=== PATIENT | male | born 1960 | race Caucasian/White ===

== ENCOUNTER 2016-11-13 10:57 | Observation (INO) | payer OTHER ==
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
--- NOTE | ~2016-11-13 | DS ---
Discharge Summary [address] [place]. [address] NAME: MARIVEL MONCADA : 58 STATUS : DIS Matthew PAT#: [id number] AGE: 55 ADM/REG DATE : 11/13/16 MR#: [id number] REPORT SERV DATE: 11/15/16 DICTATED BY: DATE: REPORT STATUS : Draft TRANSCRIBED BY: MODL DATE: 11/14/16 ADMISSION DATE: 11/13/2016 DISCHARGE DATE: 11/14/2016 DISCHARGE DIAGNOSES: 1. Acute encephalopathy. 2. Hypertension. 3. Hyperlipidemia. 4. Amnesia. 5. Bipolar disorder. PROCEDURES AND IMAGIN. 11/13/2016, portable chest x-ray showed no acute process. 2. 11/13/2016, CT of the brain without contrast showed no acute infarct or hemorrhage with mild atrophy and chronic white matter gliosis. 3. MRI of the brain without contrast showed deep white matter changes, mild amount in both right and left centrum semiovale that do not appear acute. There is no evidence of any acute pathology. 4. 11/13/2016, MRA of the head without contrast showed mild changes in the M3 branches on the right and left and more particularly on the right. These are probably atherosclerotic in origin, vasculitis cannot be totally excluded. 5. 11/13/2016, MRI of the neck without contrast showed some minimal atherosclerotic changes in the posterior wall of the internal carotid at the bifurcation. No significant luminal stenosis in carotid, vertebral, or subclavian arteries identified. CONSULTATIONS: Dr. Harrison with Neurology and Dr. Varma with Psychiatry. HOSPITAL COURSE: Please refer to Dr. Gabby Bo H and P on 11/13/2016 for complete details regarding the patient's admission. 1. In brief, the patient was admitted by Dr. Bo for initial workup and management of his transient confusion and short-term amnesia. The patient has had a relatively uncomplicated hospital course. The patient has had extensive imaging which had shown no acute changes. The patient was seen by Neurology for his amnesia. The patient's urine drug screen was positive for benzodiazepine as well as cannabinoids and it was felt that this might be related to drug over use as well as combining it with marijuana. 2. Bipolar disorder. The patient was seen by Dr. Varma and it was recommended that he should avoid any antidepressant medications except under very specific circumstances that would be prescribed by Psychiatry. He has agreed to stop his Prozac. The patient also realizes the desirability of slow taper off his Ativan when his Abilify can be titrated to further increase for maximum bipolar control up to 5 to 10 mg daily if needed for mood or anxiety issues. 3. Hypertension. The patient has been stable on his Bystolic, Norvasc, and Prinivil with blood pressures in the 120s to 130 systolically and 70s to 80s diastolic. The patient's EEG has come back within normal limits. The patient has also been smoking one pack a day and smoking cessation was discussed. The patient states he has been to Discharge [address] [address] NAME: MARIVEL MONCADA : 58 STATUS : DIS Matthew PAT#: [id number] AGE: 55 ADM/REG DATE : 11/13/16 MR#: [id number] REPORT SERV DATE: 11/15/16 DICTATED BY: DATE: REPORT STATUS : Draft TRANSCRIBED BY: MODL DATE: 11/14/16 Vincenzo Garza previously as a teenager and feels like he had a positive experience there and is willing to talk to Dr. Hylton about a possible Psychiatric referral for his bipolar disorder. PHYSICAL EXAMINATION: VITAL SIGNS: Blood pressure is 139/89, temp is 98.0, heart rate is 83, respirations are 16, O2 saturation is 95% on room air. HEENT: Head is atraumatic, normocephalic. Pupils are equal, round, reactive to light and accommodation. Sclerae are clear. Nonicteric. Good dentition. NECK: Supple with no obvious thyromegaly or lymphadenopathy. Neck veins are flat. No obvious bruits. CARDIAC: The patient has S1 and S2 with no obvious murmurs, rubs, or gallops. LUNGS: Clear to auscultation with normal respiratory effort anteriorly and posteriorly. GI: Abdomen is soft, and nontender with active bowel sounds in all four quadrants. Normal bowel habitus. No palpable organomegaly. EXTREMITIES: No significant edema, clubbing, or cyanosis. Dorsalis pedis and posterior tibial pulses are palpable and equal bilaterally. MUSCULOSKELETAL: The patient moves all extremities x4. He is ambulatory without assistance. No difficulties with balance. SKIN: Skin is warm and dry. Intact, with normal color and turgor. NEUROPSYCH: The patient is alert and oriented x4, pleasant and cooperative. Cranial nerves II through XII are grossly intact. Affect is bright. DISCHARGE MEDICATIONS: Amlodipine 10 mg twice daily, Abilify 2 mg daily, aspirin 81 mg daily, Lipitor 10 mg daily, folic acid 1 mg daily, Prinivil 10 mg twice daily, Ativan 1 mg three times a day p.r.n. for anxiety, the patient is to attempt dose taper, Bystolic 10 mg daily, Flomax 0.4 mg daily, and Flonase one spray in each nostril twice daily as needed for allergies. ALLERGIES: THE PATIENT HAS AN ADVERSE REACTION TO TOPAMAX FOR WHICH HE HAS RHABDOMYOLYSIS AND HAS AN ALLERGY TO WASP VENOM. DISCHARGE INSTRUCTIONS: The patient is to follow up with his PCP, Dr. Hylton, in 7 to 10 days. Should the patient have any other acute issues, the patient is to follow up with PCP or present to the ER. Approximately 25 minutes has been spent coordinating discharge care of this patient including [id number] encounter and summarization of the discharge. RYLAN/URBANO Erin Nguyen NP / [id number] Discharge Summary [address] [address] NAME: MARIVEL MONCADA : 58 STATUS : DIS Matthew PAT#: [id number] AGE: 55 ADM/REG DATE : 11/13/16 MR#: [id number] REPORT SERV DATE: 11/15/16 DICTATED BY: DATE: REPORT STATUS : Draft TRANSCRIBED BY: MODL DATE: 11/14/16 CC: Boris Dove M.D.
--- NOTE | ~2016-11-13 | EEG ---
Electroencephalogram [facility] [address] [facility] [place]. [address] NAME: MARIVEL MONCADA : 58 STATUS : ADM Matthew PAT#: [id number] AGE: 55 ADM/REG DATE : 11/13/16 MR#: [id number] REPORT SERV DATE: 11/14/16 DICTATED BY: DATE: REPORT STATUS : Draft TRANSCRIBED BY: MODL DATE: 11/14/16 CLINICAL INDICATIONS: Encephalopathy. DESCRIPTION: This EEG was performed using 10/20 electrode placement system. During the EEG study, symmetric background activity was noted with muscle artifact contamination. Throughout the EEG study, predominant occipital rhythm is 11 hertz. Photic stimulation was performed with appropriate driving response. Hyperventilation was also performed. The patient achieved drowsy state. Otherwise, no focal abnormalities, seizure activity, or seizure discharge was seen. No clinical event was captured. INTERPRETATION: This EEG study obtained during awake and drowsy state may be considered within normal limits. No focal abnormalities, seizure activity, or seizure discharge was otherwise noted. Clinical correlation is recommended. [facility]/MOD Catalino Harrison MD / [id number] CC: Boris Dove M.D.
--- NOTE | ~2016-11-13 | CN ---
Consultation Report [facility] [address] [place]. [address] NAME: MARIVEL MONCADA : 58 STATUS : ADM Matthew PAT#: [id number] AGE: 55 ADM/REG DATE : 11/13/16 MR#: [id number] REPORT SERV DATE: 11/14/16 DICTATED BY: TATE LYONS DATE: 11/14/16 REPORT STATUS : Draft TRANSCRIBED BY: MODRaudel DATE: 11/14/16 PSYCHIATRIC CONSULTATION DATE OF CONSULTATION: 11/14/2016 I reviewed this patient's medical record. HISTORY OF PRESENT ILLNESS: He was admitted after he experienced an episode of confusion yesterday morning. I was consulted to address his history of mood swings. PAST PSYCHIATRIC HISTORY: He has suffered from mood cycling all of his adult life. He has periods of depression and periods of lorena. During manic periods, he gets very energetic, impulsive, optimistic, and insomniac. His home medication list included Abilify 2 mg q.h.s., Prozac 20 mg q.h.s., Ativan 1 mg t.i.d. p.r.n. He actually was taking the Ativan three times a day. His medications were prescribed by his PCP. He reported that the Abilify, which was started a few months ago, was the most helpful of all of these medications. FAMILY HISTORY: His father had anger issues. A paternal aunt had mood swings. SOCIAL HISTORY: He lives alone. He works in the insurance industry. He likes to play piano. He has supportive friends. MENTAL STATUS: He was very pleasant and cooperative in attitude. His mood was somewhat anxious. His affect was full and appropriate. His thinking was logical. He had no delusions. He had no hallucinations. He was oriented to time, place, and person. DIAGNOSIS: Bipolar disorder, not otherwise specified. RECOMMENDATIONS: I strongly suggested that he should avoid antidepressant medications, except under very specific circumstances. He readily agreed to stop the Prozac. We also discussed the desirability of a slow taper off Ativan at some future time. He was willing to consider this also. The Abilify can be increased to 5 or 10 mg daily if needed for mood or anxiety issues. He was agreeable to all of these recommendations. I will sign off. TOM/URBANO Tate Lyons M.D. / [id number] CC: Consultation Report [place] [address] [address] [place] [place] [address] NAME: MARIVEL MONCADA : 58 STATUS : ADM Matthew PAT#: [id number] AGE: 55 ADM/REG DATE : 11/13/16 MR#: [id number] REPORT SERV DATE: 11/14/16 DICTATED BY: TATE LYONS DATE: 11/14/16 REPORT STATUS : Draft TRANSCRIBED BY: URBANO DATE: 11/14/16 Bruce Vega Jr, MD G Michael Ozborn, M.D.
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
[2016-11-13 09:39] LABS: BASOPHILS 0.1 %; BASOPHILS ABSOLUTE 0.01 10/3/uL (0.0-0.16); EOSINOPHILS 1.1 %; HEMATOCRIT 38.4 % (40.0-51.0); HEMOGLOBIN 13.7 g/dL (13.6-17.8); IMMATURE GRANULOCYTES 0.5 %; IMMATURE GRANULOCYTES ABSOLUTE 0.04 10/3/uL (0.0-0.11); LYMPHOCYTES 26.2 %; MEAN CORPUS HGB CONC 35.7 g/dL (32.0-36.0); MEAN CORPUSCULAR HEMOGLOB 30.6 pg (26.0-34.0); MEAN CORPUSCULAR VOLUME 85.9 fL (80-100); MEAN PLATELET VOLUME 10.1 fL (9.2-13.0); MONOCYTES 6.6 %; MONOCYTES ABSOLUTE 0.58 10/3/uL (0.21-1.20); NEUTROPHILS 65.5 %; NEUTROPHILS ABSOLUTE 5.76 10/3/uL (2.02-8.40); PLATELET COUNT 190 10/3/uL (150-400); RBC DISTRIBUTION WIDTH 13.9 % (12.0-16.0); RED CELL COUNT 4.47 10/6/uL (4.7-6.1); WHITE BLOOD CELLS 8.8 10/3/uL (4.5-10.5)
[2016-11-13 09:41] LABS: ER CBC TAT 0 Hrs 03 MinsN; MANUAL DIFF NO %
[2016-11-13 09:52] LABS: ASCORBIC ACID (UR NOT ORDER) NEG (NEG); BILIRUBIN, URINE NEGATIVE (NEG); ER URINALYSIS TAT 0 Hrs 05 Mins; KETONE, URINE NEGATIVE (NEG); LEUKOCYTE ESTERASE(NOT OR NEG (NEG); NITRITE (URINE) NEG (NEG); WBC (NOT ORDERED) (RFLEX) < 1 (0-5)
[2016-11-13 09:55] LABS: A/G RATIO 1.2 (0.7-1.9); ALBUMIN 3.5 G/DL (3.5-5.0); ALKALINE PHOSPHATASE 102 U/L (45-117); BUN (BLOOD UREA NITROGEN) 10 MG/DL (6-23); CALCIUM, SERUM 9.2 MG/DL (8.5-10.4); CHLORIDE, SERUM 108 MMOL/L (96-112); CO2 (CARBON DIOXIDE) 24 MMOL/L (24-34); CREATININE 0.96 MG/DL (0.70-1.30); GFR AFRICAN AMERICAN 102 ML/MIN (>=60); GFR NON AFRICAN AMERICAN 88 ML/MIN (>=60); GLUCOSE, SERUM 109 MG/DL (60-99); POTASSIUM, SERUM 3.5 MMOL/L (3.5-5.3); SGOT(AST) 23 U/L (5-40); SGPT(ALT) 23 U/L (5-65); SODIUM, SERUM 140 MMOL/L (135-148); TOTAL BILIRUBIN 0.6 MG/DL (0-1.2); TOTAL PROTEIN 6.5 G/DL (6.0-8.5)
[2016-11-13 10:06] LABS: AMPHETAMINES (NOT ORD) NEG (NEG); BARBITURATES (NOT ORDERED NEG (NEG); BENZODIAZEPINES (NOT ORD) POS (NEG); CANNABINOIDS (THC) POS (NEG); COCAINE (NOT ORDERED) NEG (NEG); OPIATES NEG (NEG); PHENCYCLIDINE(PCP) NEG (NEG); TRICYCLICS NEG (NEG)
[~2016-11-13 10:57] MED LIST: ALPHA LIPOIC ACID PO; ASAB PO; ATV1 PO; AUG500 PO; BYSTOLIC; BYSTOLIC10 MG PO; CAT2 PO; CETIRIZINE HCL5 MG PO; CLONIDINE; FOLIC; HALF81; LEVSINTAB PO; LEVSINTAB SL; LIPITOR; LIPITOR10 PO; LORAZEPAM; NEXIUM40 PO; NORV10 PO; NORVASC; PERCOCET1 TA4 PO; PR12.5 PO; PREV30 PO; PREVACID; PRIN10 PO; PROTONIX PO; PROZAC40 MG PO; SOMA; SOMATAB PO; SYMBYAX; SYMBYAX PO; TOPAMAX; TOPAMAX100 PO; TOPAMAX50 MG PO; ZYP2 PO
[2016-11-13] MEDS ORDERED: FLOMAX4 PO ×2 (12:22→12:24)
[2016-11-13] MEDS ORDERED: NORV10 PO (12:22)
[2016-11-13] MEDS ORDERED: FOLIC PO (12:22)
[2016-11-13] MEDS ORDERED: LIPITOR10 PO (12:22)
[2016-11-13] MEDS ORDERED: ABILIFY2 PO (12:22)
[2016-11-13] MEDS ORDERED: BYSTOLIC10 MG PO (12:23)
[2016-11-13] MEDS ORDERED: PRIN10 PO (12:23)
[2016-11-13] MEDS ORDERED: ASAB PO (12:23)
[2016-11-13] MEDS ORDERED: ATV1 PO (12:23)
[2016-11-13] MEDS ORDERED: FLONASE NAS (12:24)
[2016-11-13] MEDS ORDERED: PROZAC PO (12:24)
[2016-11-13 17:23] LABS: SALICYLATE 3.8 MG/DL (-)
[2016-11-13 17:26] LABS: ACETAMINOPHEN LEVEL (TYLENOL) < 2.0 MCG/ML (10.0-20.0); ALCOHOL < 10 MG/DL (0)
[2016-11-14 03:42] LABS: BASOPHILS 0.1 %; BASOPHILS ABSOLUTE 0.01 10/3/uL (0.0-0.16); EOSINOPHILS ABSOLUTE 0.16 10/3/uL (0.0-0.53); HEMATOCRIT 41.7 % (40.0-51.0); HEMOGLOBIN 14.8 g/dL (13.6-17.8); IMMATURE GRANULOCYTES 0.5 %; IMMATURE GRANULOCYTES ABSOLUTE 0.04 10/3/uL (0.0-0.11); LYMPHOCYTES 31.8 %; LYMPHOCYTES ABSOLUTE 2.57 10/3/uL (0.67-4.30); MANUAL DIFF NO %; MEAN CORPUS HGB CONC 35.5 g/dL (32.0-36.0); MEAN CORPUSCULAR HEMOGLOB 30.6 pg (26.0-34.0); MEAN CORPUSCULAR VOLUME 86.2 fL (80-100); MEAN PLATELET VOLUME 10.1 fL (9.2-13.0); MONOCYTES 8.8 %; MONOCYTES ABSOLUTE 0.71 10/3/uL (0.21-1.20); NEUTROPHILS 56.8 %; PLATELET COUNT 209 10/3/uL (150-400); RBC DISTRIBUTION WIDTH 13.6 % (12.0-16.0); RED CELL COUNT 4.84 10/6/uL (4.7-6.1); WHITE BLOOD CELLS 8.1 10/3/uL (4.5-10.5)
[2016-11-14 04:36] LABS: ALBUMIN 3.6 G/DL (3.5-5.0); ALKALINE PHOSPHATASE 109 U/L (45-117); BUN (BLOOD UREA NITROGEN) 9 MG/DL (6-23); CALCIUM, SERUM 9.1 MG/DL (8.5-10.4); CHLORIDE, SERUM 108 MMOL/L (96-112); CHOL/HDL RATIO(NOT ORDER) 2.3 (0-5); CHOLESTEROL 121 MG/DL (< 200); CO2 (CARBON DIOXIDE) 25 MMOL/L (24-34); CREATININE 0.88 MG/DL (0.70-1.30); DIRECT BILIRUBIN 0.1 MG/DL (0.0-0.4); FREE T4 0.97 NG/DL (0.76-1.46); GFR AFRICAN AMERICAN 111 ML/MIN (>=60); GFR NON AFRICAN AMERICAN 96 ML/MIN (>=60); GLUCOSE, SERUM 122 MG/DL (60-99); HDL CHOLESTEROL 52 MG/DL (> 39); INDIRECT BILIRUBIN(NOT ORDER) 0.7 MG/DL (0.1-0.9); LDL CHOLESTEROL 39 MG/DL (< 130); NON-HDL CHOLESTEROL 69 MG/DL (< 160); POTASSIUM, SERUM 3.3 MMOL/L (3.5-5.3); SGOT(AST) 19 U/L (5-40); SGPT(ALT) 25 U/L (5-65); SODIUM, SERUM 142 MMOL/L (135-148); TOTAL BILIRUBIN 0.8 MG/DL (0-1.2); TOTAL PROTEIN 6.6 G/DL (6.0-8.5); TRIGLYCERIDE 150 MG/DL (< 150)
[2016-11-14 04:37] LABS: FOLATE 33.7 NG/ML (>5.2)
[2016-11-14 07:24] LABS: GLYCOHEMOGLOBIN (HbA1c) 5.4 % (4.7-6.1)
== END 2016-11-14 18:45 | disposition home or self-care (01) ==
LOC: ER 10:57 → CDU1 12:31 → CDU2 13:07
PROVIDERS: Emergency Medicine; Internal Medicine; Nurse Practitioner
DX: G93.40 Encephalopathy, unspecified (principal); R41.3 Other amnesia; I10 Essential (primary) hypertension; E78.5 Hyperlipidemia, unspecified; F41.9 Anxiety disorder, unspecified; F32.9 Major depressive disorder, single episode, unspecified; D64.9 Anemia, unspecified; Z91.030 Bee allergy status; Z88.8 Allergy status to other drugs, medicaments and biological substances; Z86.73 Personal history of transient ischemic attack (TIA), and cerebral infarction without residual deficits; Z87.891 Personal history of nicotine dependence; Z90.49 Acquired absence of other specified parts of digestive tract; Z98.890 Other specified postprocedural states
CPT/HCPCS: 70450; 70544; 70548; 70553; 71010; 80048; 80053; 80061; 80076; 80305; 80307; 81001; 82140; 82306; 82533; 82607; 82746; 82962; 83036; 84132; 84439; 84443; 85025; 87389; 93005; 95816; 96372; 99285; A9270-GY; A9577; G0378